=== PATIENT | female | born 1945 | race Caucasian/White ===

== ENCOUNTER 2017-03-22 11:13 | Observation (INO) | payer OTHER, BC ==
[~2017-03-22] VITALS: Ht 182.9 cm; Wt 98.1 kg
[~2017-03-22 11:13] MED LIST: ADVAIR 250-501 EACH IH; ALLERGY SHOTS; BACTRIM,SEPT1 TABLET PO; CALTRATE 6001 TABLET; CIPRO500 MG PO; CRESTOR5 MG PO; DEXILANT60 MG PO; DYMISTA NASAL S23 GM BOTH NARES; KEFLEX500 MG PO; MULTIVITAMIN1 EAC2 PO; NEXIUM40 MG PO; NORCO 7.5/321 TABLET PO; OMEGA 3 1,0001 EACH PO; OxyCODONE PO; PERCOCET 5/31 TABLET PO; PROMETHAZINE HC25 M1 PO; ROBITUSSIN DM118 ML PO; SUCRALFATE1 GM PO; SYMBICORT60 INHALA1 IH; SYMBICORT60 INHALAT IH; TESSALON PERLE100 MG PO; TYLENOL WITH C1 EACH PO; VALIUM2 MG PO; VENTOLIN HFA18 GM IH; VITAMIN B12-FO1 EACH PO; ZANAFLEX4 M1 PO; [UNRECOGNIZED DRUG - REMARK]
[2017-03-22 12:05] LABS: HEMATOCRIT 39.1 % (36.0-46.0); MCH 28.4 PG (29.0-34.0); MCHC 31.7 G/DL (30.0-36.0); MCV 89.5 FL (83-99); MEAN PLAT.VOLUME 10.1 uM^3 (9.5-12.4); PLATELET COUNT 223 K/uL (156-360); RBC DIS.WIDTH-CV 12.2 % (11.8-14.6); RBC DIS.WIDTH-SD 40.2 % (39-53); RED BLOOD COUNT 4.37 M/uL (3.80-5.20); WHITE BLOOD COUNT 10.1 K/uL (4.1-10.2)
[2017-03-22 12:21] LABS: CHLORIDE 106 mEq/L (99-109); POTASSIUM 3.8 mEq/L (3.7-5.4); SODIUM 141 mEq/L (136-147)
[2017-03-22 12:23] LABS: GLUCOSE 106 mg/dL (70-99)
[2017-03-22 12:24] LABS: ANION GAP 10 MEQ/L (2-14)
[2017-03-22 12:27] LABS: GFR ESTIMATE (CALCULATED) > 59 mL/min/
[2017-03-22 12:28] LABS: UREA NITROGEN (BUN) 17 mg/dL (9-23)
[2017-03-22 12:32] LABS: TROP-I INTERPRETATION NEGATIVE; TROPONIN-I < 0.01 ng/mL (0.0-0.30)
[2017-03-22 13:35] LABS: D-DIMER ELISA 0.61 mg/L FEU (< 0.57)
[2017-03-22] MEDS ORDERED: DYMISTA NASAL S23 GM BOTH NARES (14:24)
[2017-03-22] MEDS ORDERED: OMEPRAZOLE40 M1 PO (14:24)
[2017-03-22] MEDS ORDERED: NORCO 5/3251 TABLET PO (14:24)
[2017-03-22 17:27] VITALS: BP 145/75
[2017-03-22 18:55] LABS: TROP-I INTERPRETATION NEGATIVE; TROPONIN-I < 0.01 ng/mL (0.0-0.30)
[2017-03-22 20:00] VITALS: BP 163/74
[2017-03-23] VITALS: BP 117/66
[2017-03-23 00:54] LABS: TROP-I INTERPRETATION NEGATIVE; TROPONIN-I < 0.01 ng/mL (0.0-0.30)
[2017-03-23 03:57] VITALS: BP 129/70
[2017-03-23 08:43] VITALS: BP 126/75
[2017-03-23 08:44] VITALS: BP 124/65
[2017-03-23 08:45] VITALS: BP 126/69
[2017-03-23 11:24] VITALS: BP 124/61
[2017-03-23] MEDS ORDERED: ASPIR-LOW81 MG PO (11:33)
[2017-03-23] MEDS ORDERED: FLEXERIL5 MG PO (12:03)
== END 2017-03-23 12:30 | disposition home or self-care (01) ==
LOC: EME 11:13 → EDOF 15:02 → 5WEST 17:23
PROVIDERS: Emergency Medicine; Nurse Practitioner Family
DX: R07.9 Chest pain, unspecified (principal); R55 Syncope and collapse; R79.89 Other specified abnormal findings of blood chemistry; J45.909 Unspecified asthma, uncomplicated; E78.5 Hyperlipidemia, unspecified; K21.9 Gastro-esophageal reflux disease without esophagitis; Z79.82 Long term (current) use of aspirin; Z90.49 Acquired absence of other specified parts of digestive tract; Z98.890 Other specified postprocedural states; Z91.81 History of falling; Z88.8 Allergy status to other drugs, medicaments and biological substances
CPT/HCPCS: 70450; 71101; 71275; 80048; 84484; 85027; 85379; 93005; 94640; 99281; 99285; G0378; J1885; J2270

== ENCOUNTER 2017-12-09 08:01 | Emergency (ER) | payer OTHER, BC ==
[~2017-12-09] VITALS: Ht 182.9 cm; Wt 75.8 kg
[~2017-12-09 08:01] MED LIST changes: +ASPIR-LOW81 MG PO; +FLEXERIL5 MG PO; +NORCO 5/3251 TABLET PO; +OMEPRAZOLE40 M1 PO
[2017-12-09 08:35] LABS: HEMATOCRIT 41.1 % (36.0-46.0); HEMOGLOBIN 13.8 G/DL (11.9-15.5); MCH 29.7 PG (29.0-34.0); MCHC 33.6 G/DL (30.0-36.0); MCV 88.4 FL (83-99); NRBC (%) 0.4 /100 WBC (0-0); PLATELET COUNT 247 K/uL (156-360); RBC DIS.WIDTH-CV 12.7 % (11.8-14.6); RBC DIS.WIDTH-SD 41.1 % (39-53); RED BLOOD COUNT 4.65 M/uL (3.80-5.20); WHITE BLOOD COUNT 13.9 K/uL (4.1-10.2)
[2017-12-09 08:47] LABS: ALBUMIN 4.1 g/dL (3.2-4.8); CHLORIDE 106 mEq/L (99-109); POTASSIUM 3.9 mEq/L (3.7-5.4); SODIUM 141 mEq/L (136-147)
[2017-12-09 08:49] LABS: GLUCOSE 98 mg/dL (70-99); TOTAL PROTEIN 6.3 g/dL (6.4-8.3)
[2017-12-09 08:51] LABS: TOTAL BILIRUBIN 1.5 mg/dL (0.0-1.0)
[2017-12-09 08:53] LABS: ALKALINE PHOSPHATASE 65 IU/L (3-129); CREATININE 0.8 mg/dL (0.6-1.3); GFR ESTIMATE (CALCULATED) > 59 mL/min/
[2017-12-09 08:54] LABS: UREA NITROGEN (BUN) 14 mg/dL (9-23)
[2017-12-09 08:55] LABS: AST (GOT) 17 IU/L (2-34)
[2017-12-09 08:56] LABS: ALT (GPT) 20 IU/L (3-49); LIPASE 19 U/L (1.0-51.0); TROP-I INTERPRETATION NEGATIVE; TROPONIN-I < 0.01 ng/mL (0.0-0.30)
[2017-12-09 09:09] LABS: APPEARANCE CLEAR ((CLEAR)); BILIRUBIN NEGATIVE; BLOOD SMALL; COLOR YELLOW ((YELLOW)); GLUCOSE (STRIP) NEGATIVE; KETONES NEGATIVE; LEUKOCYTES NEGATIVE; NITRITE NEGATIVE; PROTEIN (STRIP) NEGATIVE; SPECIFIC GRAVITY 1.015 (1.000-1.030); UROBILINOGEN 0.2 MG/DL (0.2-1.0)
[2017-12-09 09:11] LABS: BACTERIA NONE SEEN /HPF; EPITHELIAL CELLS NONE SEEN /HPF; MUCUS TRACE /LPF; RED BLOOD CELLS 0-5 /HPF (0-5); UCUL ADDED? NO; WHITE BLOOD CELLS 0-5 /HPF (0-5)
[2017-12-09] MEDS ORDERED: NORCO 5/3251 TABLET PO (10:39)
[2017-12-09] MEDS ORDERED: PYRIDIUM200 MG PO (10:39)
[2017-12-09] MEDS ORDERED: ZOFRAN ODT4 MG PO (10:39)
[2017-12-09 11:06] VITALS: BP 130/77
== END 2017-12-09 11:16 | disposition home or self-care (01) ==
LOC: EME 08:01
PROVIDERS: Nurse Practitioner Family
DX: R10.2 Pelvic and perineal pain (principal); R10.13 Epigastric pain; R82.99 Other abnormal findings in urine; R11.0 Nausea; R42 Dizziness and giddiness; D72.829 Elevated white blood cell count, unspecified; R30.0 Dysuria; Z90.49 Acquired absence of other specified parts of digestive tract; J45.909 Unspecified asthma, uncomplicated; R13.10 Dysphagia, unspecified
CPT/HCPCS: 80053; 81003; 83605; 83690; 84484; 85027; 99281; 99283